=== PATIENT | female | born 2000 | race Caucasian/White ===

== ENCOUNTER 2019-01-25 14:58 | Inpatient (IN) | payer MEDICAID ==
[~2019-01-25] VITALS: Ht 165.1 cm; Wt 63.1 kg
[2019-01-25] MEDS ORDERED: PREN1TAB71 PO (15:42)
[2019-01-25 15:43] VITALS: Ht 165.1 cm; Wt 63.1 kg
[2019-01-25 15:44] VITALS: BP 110/77
[2019-01-25] MEDS ORDERED: METHYLERGONOVINE 0.2 MG INJ IM PRN (16:00)
[2019-01-25] MEDS ORDERED: MISOPROSTOL 200 MCG TAB PR PRN (16:00)
[2019-01-25] MEDS ORDERED: OXYTOCIN 30 UNITS/LR 500 ML IV PRN (16:00)
[2019-01-25] MEDS ORDERED: LIDOCAINE 1% (MPF) 30 ML INJ INJ PRN (16:00)
[2019-01-25] MEDS ORDERED: BUTORPHANOL 2 MG INJ IV PRN ×2 (16:00)
[2019-01-25] MEDS ORDERED: OXYTOCIN 30 UNITS/LR 500 ML IV SCH ×2 (16:00)
[2019-01-25] MEDS ORDERED: CARBOPROST 250 MCG INJ IM PRN (16:00)
[2019-01-25] MEDS ORDERED: AMPICILLIN 2 GM/NS (PMX) 100 ML IV ONE (16:00)
[2019-01-25] MEDS: LACTATED RINGER'S 1,000 ML IV SCH ×2 (16:06→18:35)
--- NOTE | 2019-01-25 16:16 | HP ---
Date/Time of Note Date/Time of Note DATE: 01/25/19 TIME: 16:14 OB - History Hx of Present Free Text/Dictation @35+wks GA in Active labor : 1 Para: 0 Care: Good Care Ultrasounds: Normal mid trimester US Obstetrical Complications: None Medical Complications: None Past Family/Social History * Past Medical, Surgical, Family and Obstetric Histories reviewed from chart. OB Admission Exam Vital Signs Vital Signs Vital Signs Date Temp Pulse Resp B/P (MAP) Pulse Ox O2 O2 Flow FiO2 Time Delivery Rate 01/25/19 98.0 110/77 15:44 (88) Physical Exam Abdomen: WNL Cervical Dilatation: 7cm Effacement: 75% Station: -1 Membranes: Intact Heart Rate: 140's Accelerations: Accelerations Present Decelerations: No Decelerations Varibility: Moderate Contractions on Admission: 6-10 Minutes Apart Last 72 hours Lab Results OB Assessment/Plan Reason for admission: observation Other Assessment: PMH denies PSH Denies Plan: Expectant Management ANITRA KNOWLES M.D. Jan 25, 2019 16:16
--- NOTE | 2019-01-25 17:27 | PREAC ---
Date/Time of Note Date/Time of Note DATE: 01/25/19 TIME: 17:26 Anesthesia Eval and Record Evaluation Time Pre-Procedure Interview DATE: 01/25/19 TIME: 17:26 Age 18 Sex female NPO: 8 hrs Preoperative diagnosis labor pain Planned procedure epidural Past Medical History Past Medical History: Includes : Gestational age: (35.5) Surgery & Anesthesia Issues No known issue Meds Anticoagulation: No Beta Denisha within 24 hr: No Reason Beta Denisha not given: Pt. not on B-Denisha Reported Medications Vit No.130/Iron/FA ( Tablet) 1 Each Tablet, 1 EACH PO 01/25/19 Current Medications Lactated Ringer's 1,000 ml @ 125 mls/hr Q8H IV Last administered on 01/25/19at 16:06; Admin Dose 125 MLS/HR; Start 01/25/19 at 15:38 Ampicillin 50 ml @ 100 mls/hr Q4H IV ; Start 01/25/19 at 20:00 Butorphanol Tartrate (Stadol) 1 mg Q2H PRN IV PAIN; Start 01/25/19 at 16:00 Butorphanol Tartrate (Stadol) 2 mg Q2H PRN IV .PAIN; Start 01/25/19 at 16:00 Lidocaine (Xylocaine 1% (Mpf)) 30 ml ONCE PRN INJ .EPISIOTOMY; Start 01/25/19 at 16:00 Oxytocin/Lactated Ringer's 500 ml @ 500 mls/hr ONCE POST IV ; Start 01/25/19 at 16:00 Oxytocin/Lactated Ringer's 500 ml @ 125 mls/hr POST IV ; Start 01/25/19 at 16:00 Oxytocin/Lactated Ringer's 500 ml @ 0 mls/hr ONCE PRN IV .VAGINAL BLEEDING; Start 01/25/19 at 16:00 Methylergonovine Maleate (Methergine) 0.2 mg ONCE PRN IM .VAGINAL BLEEDING; Start 01/25/19 at 16:00 Carboprost Tromethamine (Hemabate) 250 mcg ONCE PRN IM .VAGINAL BLEEDING; Start 01/25/19 at 16:00 Misoprostol (Cytotec) 1,000 mcg ONCE PRN [place] .VAGINAL BLEEDING; Start 01/25/19 at 16:00 Meds reviewed: Yes Allergies Coded Allergies: No Known Allergy (Unverified , 02/15/15) Allergies Reviewed: Yes Labs/Studies Labs Reviewed: Reviewed by anesthesiologist Result Diagram: 01/25/19 1559 Laboratory Tests 01/25/19 15:59 test: Positive Studies: ECG (n/a), CXR (n/a) Pre-procedure Exam Last vitals Vital Signs Date Temp Pulse Resp B/P (MAP) Pulse Ox O2 O2 Flow FiO2 Time Delivery Rate 01/25/19 98.0 110/77 15:44 (88) Airway: Adequate mouth opening Mallampati: Mallampati I Teeth: Normal Lung: Normal Heart: Normal ASA Physical Status ASA physical status: 2 Emergency: None Planned Anesthetic Neuraxial: Epidural Planned Pain Management Epidural Pre-operative Attestations Prior to commencing anesthesia and surgery, the patient was re-evaluated, there was verification of: *The patient's identity *The results of appropriate recent lab work and preoperative vital signs *The above evaluation not changing prior to induction *Anesthetic plan, risk benefits, alternative and complications discussed with patient/family; questions answered; patient/family understands, accepts and wi shes to proceed. JAMIL ZAYAS MD Jan 25, 2019 17:27
[2019-01-25] MEDS ORDERED: NALOXONE (0.4 MG/ML) INJ IV PRN (17:30)
[2019-01-25] MEDS ORDERED: FENTAnyl 2MCG/ML-ROPIV 0.2% 100 ML BAG EPI SCH (17:30)
[2019-01-25] MEDS: ONDANSETRON 4 MG INJ IV PRN (18:35)
[2019-01-25] MEDS ORDERED: ACETAMINOPHEN 325 MG TAB PO ONE (19:30)
[2019-01-25] MEDS: AMPICILLIN 1 GM/NS (PMX) 50 ML IV SCH (20:18)
[2019-01-25] MEDS ORDERED: MINERAL OIL LIGHT 10 ML VIAL TOP ONE (20:30)
[2019-01-26] MEDS: AMPICILLIN 1 GM/NS (PMX) 50 ML IV SCH ×2 (00:35→04:00)
[2019-01-26] MEDS: ONDANSETRON 4 MG INJ IV PRN (03:29)
[2019-01-26] MEDS ORDERED: AL HYDROX/MG HYDROX/SIMETH 30 ML CUP PO ONE (03:30)
--- NOTE | 2019-01-26 04:03 | LDN ---
Date/Time of Note Date/Time of Note DATE: 01/26/19 TIME: 04:00 Delivery Summary Weeks of Gestation 35 weeks and 6 days Placenta Delivered: Spontaneously Meconium: none Episiotomy: No Laceration repair: Second degree perineal laceration repaired with 3-0 Vicryl and 3-0 chromic. Anesthesia type: Epidural Estimated blood loss: 100 Sponge & Needle done & correct: Yes All needle counts correct: Yes Any foreign bodies felt in the: No Infant Delivery Information Sex Sex: female Apgars 1 Minute: 9 5 Minute: 9 Suctioning Nose & mouth suctioned at rodrigo: No Delee suction performed: No Umbilical Cord Umbilical cord with: 3 Vessels Cord presentations: no nuchal cord Cord Blood was obtained: Yes Mother & Baby Disposition Disposition Mom & Baby to Maternity; Good: Yes ABIOLA OG MD January 26, 2019 04:03
[2019-01-26] MEDS ORDERED: IBUPROFEN 600 MG TAB PO ONE (05:30)
[2019-01-26 06:00] VITALS: BP 130/67
[2019-01-26] MEDS ORDERED: BENZOCAINE 20% 56 ML SPRAY TOP PRN (06:00)
[2019-01-26] MEDS ORDERED: OXYTOCIN 30 UNITS/LR 500 ML IV PRN (06:00)
[2019-01-26] MEDS ORDERED: WITCH HAZEL/GLYCERIN PAD PR PRN (06:00)
[2019-01-26] MEDS ORDERED: METHYLERGONOVINE 0.2 MG INJ IM PRN (06:00)
[2019-01-26] MEDS ORDERED: DIBUCAINE 1% 30 GM OINT TOP PRN (06:00)
[2019-01-26] MEDS ORDERED: MISOPROSTOL 200 MCG TAB PR PRN (06:00)
[2019-01-26] MEDS ORDERED: CARBOPROST 250 MCG INJ IM PRN (06:00)
[2019-01-26] MEDS: IBUPROFEN 600 MG TAB PO SCH ×3 (06:00→17:36)
[2019-01-26] MEDS ORDERED: HYDROCODONE/APAP (5/325) TAB PO PRN (06:00)
[2019-01-26 08:00] VITALS: BP 124/77
[2019-01-26] MEDS: SENNA/DOCUSATE NA (8.6MG/50MG) TAB PO SCH ×2 (08:13→21:09)
[2019-01-26] MEDS: ACETAMINOPHEN 325 MG TAB PO PRN ×2 (08:14→21:11)
--- NOTE | 2019-01-26 08:15 | PAC ---
Date/Time of Note Date/Time of Note DATE: 01/26/19 TIME: 08:15 Post-Anesthesia Notes Post-Anesthesia Note Last documented vital signs Vital Signs Date Temp Pulse Resp B/P (MAP) Pulse Ox O2 O2 Flow FiO2 Time Delivery Rate 01/26/19 101.1 95 18 130/67 99 Room Air 06:00 (88) Activity: WNL Respiratory function: WNL Cardiovascular function: WNL Mental status: Baseline Pain reasonably controlled: Yes Hydration appropriate: Yes Nausea/Vomiting absent: No JAMIL ZAYAS MD January 26, 2019 08:15
[2019-01-26] MEDS: LACTATED RINGER'S 1,000 ML IV* SCH ×3 (08:18→21:39)
[2019-01-26] MEDS: AMPICILLIN/SULB 3 GM/NS (PMX) 100 ML IVPB SCH ×3 (08:21→20:25)
[2019-01-26 16:00] VITALS: BP 120/75
[2019-01-26 19:45] VITALS: BP 113/66
[2019-01-27] MEDS: IBUPROFEN 600 MG TAB PO SCH ×5 (00:36→20:04)
[2019-01-27] MEDS: AMPICILLIN/SULB 3 GM/NS (PMX) 100 ML IVPB SCH ×2 (03:17→09:22)
[2019-01-27 04:23] VITALS: BP 110/61
[2019-01-27] MEDS: LACTATED RINGER'S 1,000 ML IV* SCH ×2 (05:39→13:39)
[2019-01-27] MEDS: SENNA/DOCUSATE NA (8.6MG/50MG) TAB PO SCH ×2 (09:22→20:04)
--- NOTE | 2019-01-27 12:18 | PN ---
Date/Time of Note Date/Time of Note DATE: 01/27/19 TIME: 12:15 OB Subjective Subjective Subjective Patient denies any is not breast-feeding. Declined breast-feeding. Urinated. And bleeding. Denies any shortness of breath or chest pain. Vaginal bleeding decreased. Denies any dizziness or lightheadedness. OB Objective Objective Objective General appearance: Alert and oriented x4 does not appear to be in any acute distress Abdomen:: Soft, fundus palpable at the level of mild umbilicus with minimal exam tenderness No guarding, no rigidity no evidence of acute abdomen Breasts: No evidence of mastitis or fissure Extremities: No calf tenderness, no click no edema no cord palpable Lungs: Clear to auscultation bilaterally CV: RRR Laboratory Tests Test 01/27/19 08:53 White Blood Count 6.6 # Red Blood Count 3.56 L Hemoglobin 9.3 L Hematocrit 29.0 L Mean Corpuscular Volume 81.5 Mean Corpuscular Hemoglobin 26.1 L Mean Corpuscular Hemoglobin Concent 32.1 Red Cell Distribution Width 14.3 Platelet Count 305 Mean Platelet Volume 9.1 Immature Granulocytes % 0.600 H Neutrophils % 62.3 Lymphocytes % 22.3 Monocytes % 13.1 H Eosinophils % 1.4 Basophils % 0.3 Nucleated Red Blood Cells % 0.0 Immature Granulocytes # 0.040 H Neutrophils # 4.1 Lymphocytes # 1.5 Monocytes # 0.9 Eosinophils # 0.1 Basophils # 0.0 Nucleated Red Blood Cells # 0.0 OB Assessment/Plan Other Assessment: [place] PPD #1 Status post Immediate fever, 101, received antibiotics for 24 hours currently stable and afebrile for the last 24 hours. Her vitals are stable She is asymptomatic We will continue watch closely Routine care Repeat CBC tomorrow DC antibiotics Possible DC home tomorrow if remain asymptomatic and afebrile Plan of care discussed with RN the patient TERI GARCIA MD January 27, 2019 12:18
[2019-01-27 15:49] VITALS: BP 119/67; PULSE 99; RESP 18
[2019-01-27 20:00] VITALS: BP 125/76; PULSE 88; RESP 18
[2019-01-27] MEDS: ACETAMINOPHEN 325 MG TAB PO PRN (20:04)
[2019-01-28] MEDS: IBUPROFEN 600 MG TAB PO SCH ×2 (01:29→10:07)
[2019-01-28 04:00] VITALS: BP 110/58; PULSE 90; RESP 17
[2019-01-28 08:00] VITALS: BP 130/73; PULSE 85; RESP 18
[2019-01-28] MEDS ORDERED: DIPHTH/TET/ACEL PERTUSS (ADULT) 0.5 ML VIAL IM* ONE (09:00)
[2019-01-28] MEDS: SENNA/DOCUSATE NA (8.6MG/50MG) TAB PO SCH (09:33)
--- NOTE | 2019-01-28 18:39 | PD.PPDC ---
ARTIST RELATIONSHIP MANAGER Discharge Instruction Diagnosis [id number] Final Diagnosis: Modkh5a s/p Condition [id number] Patient Condition: Wyurz0g Stable Diet [id number] Diet: Kaloc3y Resume Regular Diet Activity/Restrictions Arezn2Pl Activity: Neiky7n May Shower Fesoa6Gp Restrictions: Fcacc9z No Lifting No Sexual Activity Nothing in the Vagina No [place] No Tampons, douche Follow-up Follow-up with Physician: 2, Week/Weeks Return to clinic for [id number] MATERIAL ATTENDANT Instructions: [id number] Fever greater than 101 Chills Worsening abdominal pain Excessive Vaginal Bleeding More than 2 pads per hour Unable to tolerate diet [id number] OB Instructions: Bmajy0v Breast Tenderness Depression Blurried Vision Headache SARAHI SABA MD January 28, 2019 18:38
--- NOTE | 2019-01-28 18:41 | DS ---
Date/Time of Note Date/Time of Note DATE: 01/28/19 TIME: 18:39 Obstetrical Discharge Record Final Diagnosis Final Diagnosis: delivered Vaginal Delivery Obstetrical Delivery: Spontaneous, Laceration, Repaired Complications Augmentation: No Induction: No Rupture of Membranes: No Condition on Discharge Physical Assessment Last Vitals: vSS afebrile Voiding: Yes Bowel Movement: No Breast: Soft, non-tender Fundus: Firm Abdomen and Incision: n/a Episiotomy: laceration second degree Calf Tenderness: No Patient Condition: Stable SARAHI SABA MD January 28, 2019 18:41
--- NOTE | 2019-01-29 17:53 | DELSUM ---
Delivery Summary A-C Datetime Report Generated by CPN: 01/29/2019 17:53 DELIVERY PERSONNEL Seeing Eye Dog Trainer: Shafer, Vandana MATERNAL INFORMATION Delivery Anesthesia: Epidural Medications in Delivery: 30 UNITS PITOCIN Delivery QBL (ml): 100 Placenta Cultured: No Maternal Complications: None RN Comments: LIMITED PNC LABOR SUMMARY EDC: 02/24/2019 00:00 No. Babies in Womb: 1 Attempted: No Labor Anesthesia: Epidural LABOR INFORMATION Reason for Induction: Not Applicable Onset of Labor: 01/25/2019 05:00 Complete Dilatation: 01/26/2019 02:50 Oxytocin: N/A Group B Beta Strep: Not Done Antibiotics # of Doses: 3 Antibiotics Time of Last Dose: 01/25/2019 00:33 Steroids Given: None Reason Steroids Not Administered: Not Applicable MEMBRANES Membranes Rupture Method: Artificial Rupture of Membranes: 01/26/2019 02:04 Length of Rupture (hr): 1.53 Amniotic Fluid Color: Clear Amniotic Fluid Amount: Small Amniotic Fluid Odor: None STAGES OF LABOR Stage 1 hr: 21 Stage 1 min: 50 Stage 2 hr: 0 Stage 2 min: 46 Stage 3 hr: 0 Stage 3 min: 2 Total Time in Labor hr: 22 Total Time in Labor min: 38 VAGINAL DELIVERY Laceration Extension: Second Degree Laceration Type: Perineal Initial Vag Sponge Count: 10 Final Vag Sponge Count: 10 Initial Vag Sharps Count: 1+1+1 Final Vag Sharps Count: 3 Sponge Count Correct: Yes; Vaginal Sweep Performed Sharps Count Correct: Yes BABY A INFORMATION Delivery Date/Time: 01/26/2019 03:36 Method of Delivery: Vaginal Born in Route : No : N/A Forceps: N/A Vacuum Extraction: N/A Shoulder Dystocia : N/A SHOULDER DYSTOCIA BABY A Infant Delivery Date/Time: 01/26/2019 03:36 PRESENTATION/POSITION BABY A Presentation: Cephalic Cephalic Presentation: Vertex Breech Presentation: N/A PLACENTA INFORMATION BABY A Placenta Delivery Time : 01/26/2019 03:38 Placenta Method of Delivery: Expressed Placenta Status: Delivered SCORES BABY A Heart Rate 1 min: >100 bpm Resp Effort 1 min: Good Cry Reflex Irritability 1 min: Cough/Sneeze/Pulls Away Muscle Tone 1 min: Active Motion Color 1 min: Body [place], Extremit Blue Resuscitation Effort 1 min: Tactile Stimulation SCORE 1 MIN: 9 Heart Rate 5 min: >100 bpm Resp Effort 5 min: Good Cry Reflex Irritability 5 min: Cough/Sneeze/Pulls Away Muscle Tone 5 min: Active Motion Color 5 min: Body [place], Extremit Blue Resuscitation Effort 5 min: Tactile Stimulation SCORE 5 MIN: 9 INFORMATION BABY A Gestational Age at Delivery: 35.6 Gestational Status: Late - 34- 36.6 Weeks Outcome : Liveborn Infant Condition : Stable Infant Sex: Female IDENTIFICATION/MEDS BABY A ID Band Number: [id number] ID Band Location: Right Leg; Left Arm Sensor Applied: Yes Sensor Number: [id number] Sensor Location : Cord Clamp Vitamin K Given : Not Given Erythromycin Given: Not Given WEIGHT/LENGTH BABY A Birthweight (gm): 3015 Infant Weight (lb): 6 Infant Weight (oz): 10 Length (in): 19.00 Length (cm): 48.26 CORD INFORMATION BABY A No. Cord Vessels: 3 Nuchal Cord : N/A Cord Blood Taken: Yes Infant Suction: Mouth; Nose ASSESSMENT BABY A Complications: None Physical Findings at Delivery: Within Normal Limits Infant Respirations: Appears Normal Outsewer/ALS Called : Yes Care By: MARIANGEL Transferred To: Remains with Mother
== END 2019-01-28 17:35 | disposition home or self-care (01) | DRG 807 ==
LOC: OBT 14:58 → L-D 14:58 → OBT 15:30 → L-D 15:39 → PP1 01-26 05:49
PROVIDERS: ADMIT Obstetrics & Gynecology; ATTEND Obstetrics & Gynecology
PROC: 10E0XZZ Delivery of Products of Conception, External Approach (ICD-10-PCS; principal; 2019-01-26)
PROC: 0KQM0ZZ Repair Perineum Muscle, Open Approach (ICD-10-PCS; 2019-01-26)
DX: O60.14X0 Preterm labor third trimester with preterm delivery third trimester, not applicable or unspecified (principal); Z37.0 Single live birth; O70.1 Second degree perineal laceration during delivery; Z3A.35 35 weeks gestation of pregnancy
CPT/HCPCS: 62322; 76815; 76817; 76818; 80053; 80307; 81001; 84560; 85025; 85610; 85730; 86592; 86850; 86900; 86901; 87086; 87340; 88307; 99464; G0463; J0290; J0295; J2405; J2590; J3010; J7120